=== PATIENT | male | born 1985 | race Caucasian/White ===

== ENCOUNTER → 2017-03-21 13:51 | Outpatient (CLI) | payer MEDICARE | END | disposition home or self-care (01) | LOC: D.RAD 13:51 → D.MRI 15:00 | DX: S43.402A Unspecified sprain of left shoulder joint, initial encounter (principal) ==

== ENCOUNTER → 2017-12-07 08:12 | Outpatient (CLI) | payer MEDICARE ==
[2017-12-10 13:14] LABS: TESTOSTERONE - FREE 8.3 pg/mL (8.7-25.1); TESTOSTERONE - SERUM 301 ng/dL (264-916)
== END | disposition home or self-care (01) ==
LOC: D.LAB 08:12
PROVIDERS: Urology
DX: R68.82 Decreased libido (principal)